=== PATIENT | male | born 1970 | race Caucasian/White ===

== ENCOUNTER 2019-08-03 13:59 | Emergency (ER) ==
--- NOTE | 2019-08-03 16:22 | XR ---
EXAMINATION TYPE: XR shoulder complete RT DATE OF EXAM: 08/03/2019 CLINICAL HISTORY: Right shoulder pain. TECHNIQUE: Three views of the right shoulder are obtained. COMPARISON: None. FINDINGS: There is no acute fracture/dislocation evident in the right shoulder. Mild to moderate spu rring acromioclavicular joint. Mild to moderate narrowing glenohumeral joint without significant spur ring. The visualized ribs are intact and unremarkable. IMPRESSION: There is no acute fracture or dislocation in the right shoulder.
--- NOTE | 2019-08-03 16:51 | ED ---
Upper Extremity HPI - General Chief Complaint: Extremity Injury, Upper Stated Complaint: Rt shoulder injury Time Seen by Provider: 08/03/19 16:33 Source: patient Mode of arrival: ambulatory Limitations: no limitations - History of Present Illness Initial Comments: Patient is a 48-year-old male presenting to the emergency Department with complaints of right shoulder pain for approximately 4 days. Patient states he helped his parents move approximate 4 days ago and then started developing right anterior shoulder pain. Patient denies any significant trauma to the shoulder. Patient denies previous history of surgeries. Patient states the pain symptoms increase when he lifts his arm forward or tries to rotate it. Patient denies fever, chills. Patient has no other complaints at this time. Upon arrival to the ER, vital signs are stable. - Related Data Allergies Allergy/AdvReac Type Severity Reaction Status Date / Time Penicillins Allergy Unknown Verified 08/03/19 14:20 Childhood Review of Systems ROS Statement: Those systems with pertinent positive or pertinent negative responses have been documented in the HPI. ROS Other: All systems not noted in ROS Statement are negative. Past Medical History Past Medical History: Hypertension History of Any Multi-Drug Resistant Organisms: None Reported Past Surgical History: No Surgical Hx Reported Past Psychological History: No Psychological Hx Reported Smoking Status: Never smoker Past Alcohol Use History: Daily Past Drug Use History: None Reported General Exam - General Exam Comments Initial Comments: GENERAL: Well-appearing, well-nourished and in no acute distress. HEAD: Atraumatic, normocephalic. EYES: Pupils equal round and reactive to light, extraocular movements intact, sclera a nicteric, conjunctiva are normal. ENT: Moist mucous membranes. NECK: Normal range of motion, supple without lymphadenopathy or JVD. LUNGS: Breath sounds clear to auscultation bilaterally and equal. No wheezes rales or rhonchi. HEART: Regular rate and rhythm without murmurs, rubs or gallops. EXTREMITIES: Patient has tenderness of the anterior right shoulder, over bicipital groove. Right shoulder range of motion is within normal limits although painful with shoulder flexion and external rotation. Patient has pain with empty can test. Patient has no swelling or deformity seen. Patient is neurovascular intact. NEUROLOGICAL: Normal speech, normal gait. PSYCH: Normal mood, normal affect. SKIN: Warm, Dry, normal turgor, no rashes or lesions noted. Limitations: no limitations Course Vital Signs 08/03/19 08/03/19 14:15 16:59 Temperature 97.9 F 98.0 F Pulse Rate 72 71 Respiratory 19 16 Rate Blood Pressure 173/90 168/89 O2 Sat by Pulse 99 100 Oximetry Medical Decision Making - Medical Decision Making Patient is a 48-year-old male presenting with right shoulder pain 4 days. There is no traumatic injury to the shoulder. X-rays reveal no acute abnormalities. I discussed with patient this is most likely a tendinitis. Patient will limit overhead activities as well as any pushing or pulling activities for approximately one to 2 weeks. Patient can take anti- inflammatories as well as apply ice to the area. If symptoms persist after 2 weeks. Patient will follow up with orthopedic. With this plan of care. Patient is stable for discharge at this time. Disposition Clinical Impression: Right anterior shoulder pain Disposition: HOME SELF-CARE Condition: Stable Instructions (If sedation given, give patient instructions): Shoulder Pain (ED) Additional Instructions: Please return to the Emergency Department if symptoms worsen or any other concerns. If symptoms persist after 2 weeks follow-up with orthopedic. Use Motrin or Aleve for pain as well as ice to the area. Limit overhead activity for at least one week. Is patient prescribed a controlled substance at d/c from ED?: No Referrals: Ahmet Del Angel MD [Primary Care Provider] - 1-2 days Lavell Galaviz MD [STAFF PHYSICIAN] - 1-2 days
[2019-08-03 16:59] VITALS: BP 168/89; PULSE 71; RESP 16; TEMP 98
== END 2019-08-03 16:59 | disposition home or self-care (01) ==
LOC: EC 13:59
DX: M25.511 Pain in right shoulder (principal); Z88.0 Allergy status to penicillin
CPT/HCPCS: 99283

== ENCOUNTER 2019-08-06 11:13 | Emergency (ER) | payer OTHER ==
[2019-08-06 11:27] VITALS: BP 137/76; PULSE 68; RESP 19; TEMP 98.3
--- NOTE | 2019-08-06 12:21 | ED ---
General Adult HPI - General Chief complaint: Extremity Injury, Upper Stated complaint: shoulder pain-revisit Time Seen by Provider: 08/06/19 11:59 Source: patient, RN notes reviewed, old records reviewed Mode of arrival: ambulatory Limitations: no limitations - History of Present Illness Initial comments: 48-year-old male presents for reevaluation of right shoulder pain. Patient was seen emergency Department 3 days prior with complaints of right shoulder pain after overuse. He had been helping his parents move. Pain is on the anterior shoulder worse with movement. Denies any chest pain or dyspnea. Denies a specific injury just states this began after overuse. He's been taking 200 mg of Motrin without relief. He's been icing shoulders well with minimal relief. - Related Data Previous Rx's Medication Instructions Recorded Ibuprofen [Motrin] 600 mg PO Q8HR PRN #24 tab 08/06/19 Allergies Allergy/AdvReac Type Severity Reaction Status Date / Time Penicillins Allergy Unknown Verified 08/03/19 14:20 Childhood Review of Systems ROS Statement: Those systems with pertinent positive or pertinent negative responses have been documented in the HPI. ROS Other: All systems not noted in ROS Statement are negative. Past Medical History Past Medical History: Hypertension History of Any Multi-Drug Resistant Organisms: None Reported Past Surgical History: No Surgical Hx Reported Past Psychological History: No Psychological Hx Reported Smoking Status: Never smoker Past Alcohol Use History: Daily Past Drug Use History: None Reported General Exam Limitations: no limitations General appearance: alert, in no apparent distress Head exam: Present: atraumatic, normocephalic Eye exam: Present: normal appearance, PERRL ENT exam: Present: normal exam Neck exam: Present: normal inspection. Absent: tenderness, meningismus Respiratory exam: Present: normal lung sounds bilaterally. Absent: respiratory distress, wheezes Cardiovascular Exam: Present: regular rate, normal rhythm GI/Abdominal exam: Present: soft. Absent: distended, tenderness Extremities exam: Present: other (Normal range of motion of the right shoulder. Pain on the anterior shoulder at the clinic clavicular joint and bicep tendon at the biceps groove. He has normal strength in extremity, normal distal pulses, normal sensation, normal insurance biller strength.) Course Vital Signs 08/06/19 11:25 Temperature 98.3 F Pulse Rate 68 Respiratory 19 Rate Blood Pressure 137/76 O2 Sat by Pulse 97 Oximetry Medical Decision Making - Medical Decision Making 48-year-old male presenting with right shoulder pain. Pain at the before meals joint as well as over the bicipital tendon at the bicipital groove. Exam consistent with overuse injury and bicep tendinitis. He will be prescribed prescription strength Motrin, he will continue to ice the shoulder and he will follow-up with orthopedics if symptoms do not improve. Disposition Clinical Impression: Osteoarthritis, Biceps tendinitis of right shoulder Disposition: HOME SELF-CARE Condition: Good Instructions (If sedation given, give patient instructions): Tendinitis (ED) Prescriptions: Ibuprofen [Motrin] 600 mg PO Q8HR PRN #24 tab PRN Reason: Pain Is patient prescribed a controlled substance at d/c from ED?: No Referrals: Ahmet Del Angel MD [Primary Care Provider] - 1-2 days Napoleon Shearer MD [STAFF PHYSICIAN] - 1-2 days Time of Disposition: 12:21
== END 2019-08-06 12:25 | disposition home or self-care (01) ==
LOC: EC 11:13
DX: M19.011 Primary osteoarthritis, right shoulder (principal); M75.21 Bicipital tendinitis, right shoulder; I10 Essential (primary) hypertension; Z88.0 Allergy status to penicillin
CPT/HCPCS: 99283

== ENCOUNTER 2020-05-14 13:38 | Emergency (ER) | payer OTHER ==
[2020-05-14] MEDS ORDERED: ALPRAZolam 1 MG TAB PO STA (14:14)
--- NOTE | 2020-05-14 14:14 | ED ---
General Adult HPI - General Chief complaint: Recheck/Abnormal Lab/Rx Stated complaint: Poss Medication Reaction Time Seen by Provider: 05/14/20 13:59 Source: patient Mode of arrival: ambulatory Limitations: no limitations - History of Present Illness Initial comments: Is a 49-year-old male with history of insomnia and anxiety presenting to emergency Department with chief complaint of anxiety. Patient states she has been suffering with insomnia for most of his life which has been treated with temazepam 15 mg. Patient states she developed a sensation of dependence to the medication and requested his primary care physician to transition him to other medications. 2 weeks ago the patient stopped taking the temazepam and was started on trazodone which didn't work. Patient states for the past 2 days he had a Lunesta to his nighttime regimen which did have some improvement. Patient states he was prescribed Paxil 20 mg which he started yesterday. Patient states he woke up this morning feeling anxious with a racing mind and pins and needles feeling. Patient states his anxiety is increasing. States he was in a conference call for his work this morning and was not able to focus. Denies any suicidal, homicidal thoughts or ideations. - Related Data Previous Rx's Medication Instructions Recorded Ibuprofen [Motrin] 600 mg PO Q8HR PRN #24 tab 08/06/19 Temazepam [Restoril] 15 mg PO HS PRN 3 Days #6 cap 05/14/20 Allergies Allergy/AdvReac Type Severity Reaction Status Date / Time Penicillins Allergy Unknown Verified 05/14/20 13:44 Childhood Review of Systems ROS Statement: Those systems with pertinent positive or pertinent negative responses have been documented in the HPI. ROS Other: All systems not noted in ROS Statement are negative. Past Medical History Past Medical History: Hypertension History of Any Multi-Drug Resistant Organisms: None Reported Past Surgical History: No Surgical Hx Reported Past Psychological History: No Psychological Hx Reported Smoking Status: Never smoker Past Alcohol Use History: Daily Past Drug Use History: None Reported General Exam Limitations: no limitations General appearance: alert, in no apparent distress, anxious (Mild) Head exam: Present: atraumatic, normocephalic, normal inspection Eye exam: Present: normal appearance, PERRL, EOMI Pupils: Present: normal accommodation ENT exam: Present: normal exam, normal oropharynx, mucous membranes moist, TM's normal bilaterally, normal external ear exam Neck exam: Present: normal inspection, full ROM. Absent: tenderness Respiratory exam: Present: normal lung sounds bilaterally. Absent: respiratory distress, wheezes, rales Cardiovascular Exam: Present: regular rate, normal rhythm, normal heart sounds Extremities exam: Present: normal inspection, full ROM, normal capillary refill. Absent: tenderness Back exam: Present: normal inspection, full ROM Neurological exam: Present: alert, oriented X3, normal gait Psychiatric exam: Present: normal affect, anxious Skin exam: Present: warm, dry, intact, normal color Course Vital Signs 05/14/20 05/14/20 13:40 15:03 Temperature 98.6 F 98.9 F Pulse Rate 63 57 L Respiratory 16 12 Rate Blood Pressure 160/89 145/81 O2 Sat by Pulse 98 96 Oximetry Medical Decision Making - Medical Decision Making Patient is a 49-year-old male presenting to emergency Department with a chief complaint of anxiety. Patient was recently started on 2 different insomnia medications and an SSRI. I spoke with the pharmacist regarding possible interactions between this medication. She has very low suspicion for any interactions at this time. I advised the patient to stop taking the Paxil which she only took one dose so far. I also advised him to stop using the trazodone and Lunesta for his insomnia at this time. I gave the patient a prescription of 6 tablets of the temazepam which worked for his insomnia. He was advised about the possible side effects of the medication. This will last him enough until he sees his primary care physician. Strict return parameters were thoroughly discussed with patient was understanding and agreeable. Case discussed with physician. - EKG Data EKG Comments: Sinus bradycardia. No ST or T-wave changes. Next, trachea rate 53, PA 134, QRS 102, QTC 386. Disposition Clinical Impression: Acute anxiety Disposition: HOME SELF-CARE Condition: Stable Instructions (If sedation given, give patient instructions): Anxiety (ED) Additional Instructions: Take prescribed medication as directed. Do not drive or operate heavy machinery when taking the medication. Follow with primary care physician. Prescriptions: Temazepam [Restoril] 15 mg PO HS PRN 3 Days #6 cap PRN Reason: Insomnia Is patient prescribed a controlled substance at d/c from ED?: No Referrals: Ahmet Del Angel MD [Primary Care Provider] - 1-2 days Time of Disposition: 15:18
[2020-05-14 15:05] VITALS: BP 145/81; PULSE 57; RESP 12; TEMP 98.9
== END 2020-05-14 15:35 | disposition home or self-care (01) ==
LOC: EC 13:38
DX: F41.9 Anxiety disorder, unspecified (principal); Z88.0 Allergy status to penicillin
CPT/HCPCS: 93005; 99283

== ENCOUNTER 2020-05-16 15:41 | Emergency (ER) | payer OTHER ==
[2020-05-16 15:45] VITALS: BP 145/81; PULSE 61; RESP 16; TEMP 97.7
[2020-05-16] MEDS ORDERED: ALPRAZolam 1 MG TAB PO STA (16:30)
--- NOTE | 2020-05-16 16:31 | ED ---
Recheck HPI - General Chief Complaint: Recheck/Abnormal Lab/Rx Stated Complaint: Revisit-medication Time Seen by Provider: 05/16/20 16:01 Source: patient Mode of arrival: ambulatory Limitations: no limitations - History of Present Illness Initial Comments: Patient is a 49-year-old male with history of anxiety and insomnia presenting to emergency Department with complaints of not being able to sleep for the past 2 days. Patient was in the ER 2 days ago for similar complaint. Patient states he did have a follow-up with his PCP, Dr. Del Angel yesterday who did prescribe him a very small dose of Xanax to allow his other new medication, Paxil to start working appropriately. She states he tried a dose of Xanax this morning without any relief. Patient states when he was here 2 days ago they did give him a 1 mg dose of Xanax and he was able to sleep and felt very good after that. Patient denies having any fever, chills, abdominal pain, nausea, vomiting. He denies any suicidal or homicidal thoughts. He has no further complaints at this time. Upon arrival to the ER, his vital signs are stable. - Related Data Previous Rx's Medication Instructions Recorded Ibuprofen [Motrin] 600 mg PO Q8HR PRN #24 tab 08/06/19 Temazepam [Restoril] 15 mg PO HS PRN 3 Days #6 cap 05/14/20 Allergies Allergy/AdvReac Type Severity Reaction Status Date / Time Penicillins Allergy Unknown Verified 05/16/20 15:42 Childhood Review of Systems ROS Statement: Those systems with pertinent positive or pertinent negative responses have been documented in the HPI. ROS Other: All systems not noted in ROS Statement are negative. Past Medical History Past Medical History: Hypertension History of Any Multi-Drug Resistant Organisms: None Reported Past Surgical History: No Surgical Hx Reported Past Psychological History: Anxiety Smoking Status: Never smoker Past Alcohol Use History: Daily Past Drug Use History: None Reported General Exam - General Exam Comments Initial Comments: GENERAL: Patient is well-developed and well-nourished. Patient is nontoxic and in no acute distress. HEAD: Atraumatic, normocephalic. EYES: Pupils equal round and reactive to light, extraocular movements intact, sclera anicteric, conjunctiva are normal. Eyelids were unremarkable. ENT: TMs normal, nares patent, oropharynx clear without exudates. Moist mucous membranes. NECK: Normal range of motion, supple without lymphadenopathy or JVD. LUNGS: Unlabored respirations. Breath sounds clear to auscultation bilaterally and equal. No wheezes rales or rhonchi. HEART: Regular rate and rhythm without murmurs, rubs or gallops. ABDOMEN: Soft, nontender, normoactive bowel sounds. No guarding, no rebound. No masses appreciated. : Deferred MUSCULOSKELETAL: Normal extremities with adequate strength and normal range of motion, no pitting or edema. No clubbing or cyanosis. NEUROLOGICAL: Patient is alert and oriented x 3. Motor and sensory are also intact. Cranial nerves II through XII grossly intact. Symmetrical smile. Normal speech, normal gait. PSYCH: Normal mood, normal affect. SKIN: Warm, Dry, normal turgor, no rashes or lesions noted. Limitations: no limitations Course Vital Signs 05/16/20 05/16/20 15:42 16:45 Temperature 97.7 F 97.7 F Pulse Rate 61 61 Respiratory 16 16 Rate Blood Pressure 145/81 145/81 O2 Sat by Pulse 99 99 Oximetry Medical Decision Making - Medical Decision Making Patient is a 49-year-old male with history of anxiety, insomnia presenting for not being able sleep for the past 2 nights. Patient was seen in the ER 2 days ago for same complaint. He did follow up with Dr. Del Angel yesterday. Patient was given a prescription for 0.25 mg of Xanax to take twice a day. Patient states he did try that dose this morning without any relief of his symptoms. Patient states he will follow up again on Tuesday however but is worried about the weekend. Did recommend him increasing his dose to 1 mg at nighttime. He cannot take a full dose in the morning as [place] out of [place]. Patient is in agreement with this plan of care. Did give him a 1 mg dose today before discharge. Patient states he will call his PCP Tuesday morning for reevaluation. Patient is stable for discharge. Return parameters were discussed with the patient he verbalizes understanding. Disposition Clinical Impression: Acute anxiety Disposition: HOME SELF-CARE Condition: Stable Instructions (If sedation given, give patient instructions): Anxiety (ED) Additional Instructions: Please return to the Emergency Department if symptoms worsen or any other concerns. Continue with already prescribed medications. May increase his Xanax dose to 1 mg at night time for anxiety at night time or trouble sleeping. Do not take a full dose in the morning. Follow up with Dr. Del Angel as discussed. Is patient prescribed a controlled substance at d/c from ED?: No Referrals: Ahmet Del Angel MD [Primary Care Provider] - 1-2 days
== END 2020-05-16 16:53 | disposition home or self-care (01) ==
LOC: EC 15:41
DX: F41.9 Anxiety disorder, unspecified (principal); Z88.0 Allergy status to penicillin
CPT/HCPCS: 99283

== ENCOUNTER 2020-05-18 07:25 | Emergency (ER) | payer OTHER ==
[2020-05-18 07:31] VITALS: RESP 18; TEMP 98
--- NOTE | 2020-05-18 07:55 | ED ---
General Adult HPI - General Chief complaint: Recheck/Abnormal Lab/Rx Stated complaint: Restless Time Seen by Provider: 05/18/20 07:33 Source: patient, family, RN notes reviewed Mode of arrival: ambulatory Limitations: no limitations - History of Present Illness Initial comments: Patient is a pleasant 49-year-old male presenting to the emergency Department with complaints of restlessness. Patient has not been sleeping well for the past several days. Patient started Paxil 1 week ago. Patient feels he is having jerking movements at night that keeps him awake. Patient has not been sleeping. Patient complains of insomnia. Patient did discontinue temazepam 3 weeks ago. Patient has been seen in the emergency department for this. No fevers. No confusion. No muscle weakness. No symptoms currently at this time. - Related Data Previous Rx's Medication Instructions Recorded Ibuprofen [Motrin] 600 mg PO Q8HR PRN #24 tab 08/06/19 Temazepam [Restoril] 15 mg PO HS PRN 3 Days #6 cap 05/14/20 Allergies Allergy/AdvReac Type Severity Reaction Status Date / Time Penicillins Allergy Unknown Verified 05/18/20 07:31 Childhood Review of Systems ROS Statement: Those systems with pertinent positive or pertinent negative responses have been documented in the HPI. ROS Other: All systems not noted in ROS Statement are negative. Constitutional: Denies: fever Eyes: Denies: eye pain ENT: Denies: ear pain Respiratory: Denies: cough Cardiovascular: Denies: chest pain Endocrine: Denies: fatigue Gastrointestinal: Denies: abdominal pain Genitourinary: Denies: dysuria Musculoskeletal: Denies: back pain Skin: Denies: rash Neurological: Reports: as per HPI Past Medical History Past Medical History: Hypertension History of Any Multi-Drug Resistant Organisms: None Reported Past Surgical History: No Surgical Hx Reported Past Psychological History: Anxiety Smoking Status: Never smoker Past Alcohol Use History: Daily Past Drug Use History: None Reported General Exam Limitations: no limitations General appearance: alert, in no apparent distress Head exam: Present: normocephalic Eye exam: Present: normal appearance, PERRL Neck exam: Present: normal inspection Respiratory exam: Present: normal lung sounds bilaterally Cardiovascular Exam: Present: regular rate, normal rhythm GI/Abdominal exam: Present: soft. Absent: tenderness Extremities exam: Present: normal inspection Neurological exam: Present: alert, oriented X3. Absent: motor sensory deficit Expanded Motor strength exam: RUE: 5, LUE: 5, RLE: 5, LLE: 5 DTR: Patellar (R): 2+, Patellar (L): 2+ Eye Response: (4) open spontaneously Motor Response: (6) obeys commands Verbal Response: (5) oriented Psychiatric exam: Present: normal affect, normal mood Skin exam: Present: normal color Course Vital Signs 05/18/20 07:26 Temperature 98 F Pulse Rate 55 L Respiratory 18 Rate Blood Pressure 132/78 O2 Sat by Pulse 100 Oximetry Medical Decision Making - Medical Decision Making Patient reevaluated and updated - Lab Data Result diagrams: 05/18/20 07:58 Lab Results 05/18/20 Range/Units 07:58 Sodium 134 L (137-145) mmol/L Potassium 4.1 (3.5-5.1) mmol/L Chloride 102 (98-107) mmol/L Carbon Dioxide 26 (22-30) mmol/L Anion Gap 6 mmol/L BUN 8 L (9-20) mg/dL Creatinine 0.73 (0.66-1.25) mg/dL Est GFR (CKD-EPI)AfAm >90 (>60 ml/min/1.73 sqM) Est GFR (CKD-EPI)NonAf >90 (>60 ml/min/1.73 sqM) Glucose 110 H (74-99) mg/dL Calcium 9.2 (8.4-10.2) mg/dL Total Bilirubin 0.9 (0.2-1.3) mg/dL AST 26 (17-59) U/L ALT 17 (4-49) U/L Alkaline Phosphatase 44 (38-126) U/L Creatine Kinase 160 (55-170) U/L Total Protein 6.6 (6.3-8.2) g/dL Albumin 4.2 (3.5-5.0) g/dL Disposition Clinical Impression: Medication adverse effect Disposition: HOME SELF-CARE Condition: Stable Instructions (If sedation given, give patient instructions): Generalized Anxiety Disorder (ED) Additional Instructions: Please decrease Paxil dose to 10 mg. Ativan given to take home if needed tonight or tomorrow. Please do close follow-up with Dr. Del Angel regarding further medications. Return for muscle weakness or pain, worsening or changing symptoms or other concerns. Is patient prescribed a controlled substance at d/c from ED?: No Referrals: Ahmet Del Angel MD [Primary Care Provider] - 1-2 days Time of Disposition: 09:04
[2020-05-18 08:25] LABS: ALT 17 U/L (4-49); AST 26 U/L (17-59); African American GFR (CKD) >90 (>60 ml/min/1.73 sqM); Albumin 4.2 g/dL (3.5-5.0); Alkaline Phosphatase 44 U/L (38-126); Anion Gap 6 mmol/L; Blood Urea Nitrogen 8 mg/dL (9-20); Calcium 9.2 mg/dL (8.4-10.2); Carbon Dioxide 26 mmol/L (22-30); Chloride 102 mmol/L (98-107); Creatine Kinase 160 U/L (55-170); Glucose 110 mg/dL (74-99); Non-African American GFR(CKD) >90 (>60 ml/min/1.73 sqM); Potassium 4.1 mmol/L (3.5-5.1); Sodium 134 mmol/L (137-145); Total Bilirubin 0.9 mg/dL (0.2-1.3); Total Protein 6.6 g/dL (6.3-8.2)
[2020-05-18] MEDS ORDERED: LORazepam 1 MG TAB PO STA ×2 (08:58→09:04)
[2020-05-18 09:52] VITALS: BP 130/77; PULSE 56
== END 2020-05-18 09:49 | disposition home or self-care (01) ==
LOC: EC 07:25
DX: R45.1 Restlessness and agitation (principal); G47.00 Insomnia, unspecified; T50.905A Adverse effect of unspecified drugs, medicaments and biological substances, initial encounter; Z88.0 Allergy status to penicillin
CPT/HCPCS: 36415; 80053; 82550; 99283

== ENCOUNTER → 2021-02-26 | Outpatient (CLI) | payer OTHER ==
--- NOTE | 2021-02-26 15:14 | CONS ---
CONSULTATION DATE OF SERVICE: 02/26/2021 HISTORY OF PRESENT ILLNESS/SLEEP WAKE EVALUATION: 50-year-old gentleman has been evaluated in [facility] Center for multiple awakenings from sleep and episodes of difficulties to initiate sleep. SLEEP SCHEDULE: Patient's sleep schedule usually from 10 p.m. until 6 or 7 a.m. on weekdays and from 10 or 11 p.m. until 6 or 7 a.m. on weekends. DURING SLEEP: According to his , he has episodes of heavy breathing, but he does not snore and he wakes up from sleep more than 3 times with nocturia. He tosses and turns during the night. DURING THE DAY/SLEEP WAKE EVALUATION: In the morning he wakes up tired, has difficulties to concentrate, has episodes of anxiety and worry about his sleep. He feels tiredness and sleepiness, but tries to avoid his naps during the day. No history of hypnagogic hallucinations, sleep paralysis or cataplexy. Valdez Sleepiness Scale is 2. PAST MEDICAL HISTORY: Positive for hypertension, tinnitus. PAST SURGICAL HISTORY: Right arm tendon rupture surgery. MEDICATIONS: Amlodipine 2.5 mg once a day, 37.5 mg once a day, 16 mg 3 times a day, clonazepam 0.5 mg in the evening as needed. SOCIAL HISTORY: Negative for smoking or using alcohol. FAMILY HISTORY: Positive for prostate carcinoma. REVIEW OF SYSTEMS: Multiple awakenings from sleep. PHYSICAL EXAMINATION: GENERAL: gentleman without distress. BP 143/84, HR 60, RR 15, height 6 and 2, weight 239. Body mass index 30.6, temperature 98.0, oxygen saturation on room air 100%. HEENT: Evaluation of oropharynx showed extremely low position of soft palate. Mallampati IV. NECK: Wide, 17 inches in circumference. Neck: Supple, no JVD. Thyroid is not palpable. LUNGS: Clear to percussion and to auscultation. Good air exchange. No wheezing or rhonchi. HEART: S1, S2 regular. No murmurs, gallops, or rubs. ABDOMEN: Soft and nontender. Bowel sounds are present. No organomegaly appreciated. EXTREMITIES: No clubbing or cyanosis. TAR DISTILLATION SUPERVISOR: Awake, alert, and oriented X3. Cranial nerves 2 to 7 intact. There is no fasciculation or atrophy. noted. No focal deficits observed. IMPRESSION: 1. Heavy breathing during sleep according to patient , multiple awakenings from sleep with nocturia, extremely low position of soft palate, wide neck 17 inches in circumference. Tiredness and sleepiness during the day with a tendency to avoid naps. Possible obstructive sleep apnea-hypopnea syndrome. 2. Difficulties to initiate sleep. Insomnia. 3. Mild obesity, body mass index 30.6. 4. Hypertension. 5. History of tinnitus. 6. Status post right arm tendon rupture treated surgically. PLAN: 1. Polysomnography for evaluation of patient's breathing during sleep. 2. CPAP/BiPAP titration if sleep study confirms obstructive sleep apnea-hypopnea syndrome. 3. Preferable position during sleep on the side. 4. No driving if patient feels any sleepiness. 5. I will see patient for follow up visit to explain results of testing and following plan. 6. Prescription for Ambien 1-2 tablets at bedtime if the patient has difficulties to initiate sleep. The patient should not take clonazepam if he has taken Ambien. 7. Earplugs the patient's of jo snores. Thank you very much for referring this patient for consultation. Sincerely, Kristopher Hernandez MD, PhD, FAASM Diplomat of [employer] Insole Toe Snipping Machine Operator of [facility] [place] MMODL / TAMMYN: [id number] /
== END | disposition home or self-care (01) ==
LOC: SLEEP 11:33
PROVIDERS: ATTEND Internal Medicine
DX: G47.00 Insomnia, unspecified (principal); I10 Essential (primary) hypertension; E66.9 Obesity, unspecified; R35.1 Nocturia; Z68.30 Body mass index [BMI] 30.0-30.9, adult; Z79.899 Other long term (current) drug therapy; Z86.69 Personal history of other diseases of the nervous system and sense organs
CPT/HCPCS: 99211

== ENCOUNTER → 2021-04-02 | Outpatient (CLI) | payer OTHER ==
--- NOTE | 2021-04-03 07:45 | SFUN ---
SLEEP CENTER FOLLOW UP NOTE DATE OF SERVICE: 04/02/2021. 50-year-old gentleman has been followed in Sleep Center to discuss results of sleep study and following plan. I discussed results of sleep study with the patient in detail. Sleep efficiency during the sleep study in the low range 49.9%. The patient slept only 3 hours 31 minutes, which is not sufficient for the conclusion about patient breathing during the sleep. Patient continued to have difficulties to initiate sleep at home and has multiple awakenings from sleep. I discussed extensively psychological techniques for treatment of insomnia. MEDICATIONS: Amlodipine, . PHYSICAL EXAM: Patient in no distress. BP 140/85, HR 59, RR 16, weight 232.2 pounds. Temperature 97.5, oxygen saturation on room air 98%. Oropharynx extremely low position of soft palate. Mallampati IV. Neck is wide, measuring 17 inches in circumference. Neck: Supple, no JVD. Thyroid is not palpable. LUNGS: Clear to percussion and to auscultation. Good air exchange. No wheezing or rhonchi. HEART: S1, S2 regular. No murmurs, gallops, or rubs. ABDOMEN: Soft and nontender. Bowel sounds are present. No organomegaly appreciated. EXTREMITIES: No clubbing or cyanosis. EXTENSION SERVICE SPECIALIST IN CHARGE: Awake, alert, and oriented X3. Cranial nerves 2 to 7 intact. There is no fasciculation or atrophy. noted. No focal deficits observed. IMPRESSION: 1. Short sleep time during the sleep study which does not permit to do the conclusion about the results. 2. The patient snores with multiple awakenings from sleep, extremely low position of soft palate, wide neck, obstructive sleep apnea-hypopnea syndrome. 3. Difficulties to initiate sleep, insomnia. 4. Hypertension. 5. History of tinnitus. 6. Obesity. 7. Status post right arm tendon rupture treated surgically. PLAN: 1. Repeat polysomnogram for evaluation of patient's breathing during sleep. 2. Clonazepam 0.5 mg at bedtime. 3. I discussed with the patient psychological treatment for treatment of insomnia should include stimulus control, paradoxical intention, worry time and no watching clock. 4. Sleep hygiene with regular time in bed for 7.5 to 8 hours. 5. No driving if feeling sleepiness. Thank you much for allowing me to participate in management of your patient. Sincerely, Kristopher Hernandez MD, PhD, FAASM Diplomat of [employer] Sleep Medicine Board of [employer] Dumper Operator of [facility] [place] [email or web address] / LATONYA: [id number] / MTDKat
== END | disposition home or self-care (01) ==
LOC: SLEEP 14:02
PROVIDERS: ATTEND Internal Medicine
DX: Z53.9 Procedure and treatment not carried out, unspecified reason (principal)